=== PATIENT | male | born 1970 | race Caucasian/White ===

== ENCOUNTER 2021-03-25 09:49 | Emergency (ER) | payer BC ==
[2021-03-25 09:58] VITALS: BP 113/76; PULSE 83; TEMP 98; BMI 30.7
[2021-03-25] MEDS ORDERED: DIPHTH,PERTUSS(ACELL),TET 0.5 ML DISP.SYRIN IM ONE ×2 (10:48→10:51)
== END 2021-03-25 11:19 | disposition home or self-care (01) ==
LOC: JERFT 09:49
PROC: 3E0234Z Introduction of Serum, Toxoid and Vaccine into Muscle, Percutaneous Approach (ICD-10-PCS; principal; 2021-03-25)
DX: S61.206A Unspecified open wound of right little finger without damage to nail, initial encounter (principal); W26.8XXA Contact with other sharp object(s), not elsewhere classified, initial encounter
CPT/HCPCS: 90715; 99282-25

== ENCOUNTER 2021-12-17 00:01 | Emergency (ER) | payer BC ==
[2021-12-17 00:32] VITALS: BMI 30.7
[2021-12-17] MEDS ORDERED: LOPERAMIDE HCL 2 MG CAPSULE PO ONE (00:55)
[2021-12-17] MEDS ORDERED: LACTATED RINGERS SOLUTION 1000 ML INFUS.BAG IV ONE (00:55)
[2021-12-17] MEDS ORDERED: LOPERAMIDE HCL 2 MG CAPSULE ONE (00:58)
[2021-12-17 01:37] LABS: HEMATOCRIT 46.3 % (35.4-49); MCH 31.2 pg (25.7-33.7); MCHC 34.6 g/dl (32.0-35.9); MEAN CELL VOLUME 90.1 fl (80-96); MEAN PLT VOLUME 6.8 fl (7.5-11.1); PLATELET COUNT 423 10^3/uL (134-434); RBC 5.14 M/mm3 (4.00-5.60); RDW 14.1 % (11.9-15.9)
[2021-12-17] MEDS ORDERED: ONDANSETRON 4 MG TABLET PO ONE (01:37)
[2021-12-17] MEDS ORDERED: ONDANSETRON 4 MG/2 ML VIAL ONE (01:49)
[2021-12-17 02:06] LABS: BLOOD UREA NITROGEN 21.4 mg/dL (7-18); CALCIUM 10.3 mg/dL (8.5-10.1)
[2021-12-17 02:07] LABS: ALBUMIN 4.8 g/dl (3.4-5.0); MAGNESIUM 2.4 mg/dL (1.8-2.4)
[2021-12-17 02:10] LABS: CREATININE 1.2 mg/dL (0.55-1.3)
[2021-12-17 02:11] LABS: BILIRUBIN,TOTAL 0.5 mg/dL (0.2-1); TOT PROT 8.7 g/dl (6.4-8.2)
[2021-12-17 06:42] VITALS: BP 125/79; PULSE 81; TEMP 97.6
== END 2021-12-17 05:00 | disposition home or self-care (01) ==
LOC: JER 00:01
DX: R11.10 Vomiting, unspecified (principal); R19.7 Diarrhea, unspecified
CPT/HCPCS: 36415; 74177-TC; 80053; 83735; 85025; 93005; 93010; 99285-25

== ENCOUNTER 2023-08-05 07:44 | Emergency (ER) | payer BC ==
[2023-08-05 08:14] VITALS: TEMP 98.1; BMI 30.7
[2023-08-05] MEDS ORDERED: ALBUTEROL SO4 2.5/IPRATROPIUM 0.5 INH SOL 3 ML VIAL.NEB. NEB ONE ×4 (08:24→08:39)
[2023-08-05] MEDS ORDERED: methylPREDNISolone NA SUCC 125 MG/2 ML VIAL IVPUSH ONE (08:34)
[2023-08-05] MEDS ORDERED: methylPREDNISolone NA SUCC 125 MG/2 ML VIAL ONE (08:35)
[2023-08-05 09:45] LABS: BASO % 0.6 % (0-2.0); EOS % 8.7 % (0-4.5); HEMATOCRIT 41.1 % (35.4-49); HEMOGLOBIN 13.6 GM/dL (11.7-16.9); LYMPH % 17.7 % (8-40); MCH 29.6 pg (25.7-33.7); MCHC 33.2 g/dl (32.0-35.9); MEAN CELL VOLUME 89.1 fl (80-96); MEAN PLT VOLUME 7.2 fl (7.5-11.1); MONO % 8.9 % (3.8-10.2); NEUT % 64.1 % (42.8-82.8); PLATELET COUNT 342 10^3/uL (134-434); RBC 4.61 M/mm3 (4.00-5.60); RDW 13.6 % (11.9-15.9); WHITE BLOOD COUNT 9.9 K/mm3 (4.0-10.0)
[2023-08-05 09:58] LABS: POTASSIUM 4.2 mmol/L (3.5-5.1)
[2023-08-05 09:59] LABS: ALBUMIN 3.6 g/dl (3.4-5.0); BLOOD UREA NITROGEN 14.5 mg/dL (7-18); CALCIUM 8.8 mg/dL (8.5-10.1)
[2023-08-05 10:02] LABS: CREATININE 0.8 mg/dL (0.55-1.3)
[2023-08-05 10:04] LABS: BILIRUBIN,TOTAL 0.6 mg/dL (0.2-1)
[2023-08-05 10:16] VITALS: BP 138/84; PULSE 64; RESP 18
== END 2023-08-05 10:35 | disposition home or self-care (01) ==
LOC: JER 07:44
PROC: 3E033GC Introduction of Other Therapeutic Substance into Peripheral Vein, Percutaneous Approach (ICD-10-PCS; principal; 2023-08-05)
PROC: 3E0F7GC Introduction of Other Therapeutic Substance into Respiratory Tract, Via Natural or Artificial Opening (ICD-10-PCS; 2023-08-05)
PROC: 3E0F7GC Introduction of Other Therapeutic Substance into Respiratory Tract, Via Natural or Artificial Opening (ICD-10-PCS; 2023-08-05)
DX: R06.00 Dyspnea, unspecified (principal); R06.2 Wheezing; R07.9 Chest pain, unspecified; R05.9 Cough, unspecified; R09.81 Nasal congestion; R53.81 Other malaise; R06.82 Tachypnea, not elsewhere classified; Z20.822 Contact with and (suspected) exposure to COVID-19
CPT/HCPCS: 0241U-QW; 36415; 71045-TC-FY; 80053; 84484; 85025; 93005; 93010; 99285-25

== ENCOUNTER 2023-08-25 15:34 | Emergency (ER) | payer BC ==
[2023-08-25 15:53] VITALS: BP 118/87; PULSE 79; RESP 20; TEMP 99.1; BMI 30.7
[2023-08-25] MEDS ORDERED: predniSONE 20 MG TABLET (UD) PO ONE (16:44)
[2023-08-25] MEDS ORDERED: ALBUTEROL SO4 2.5/IPRATROPIUM 0.5 INH SOL 3 ML VIAL.NEB. NEB ONE (16:57)
[2023-08-25] MEDS ORDERED: predniSONE 20 MG TABLET (UD) ONE (16:58)
[2023-08-25] MEDS: ALBUTEROL SO4 2.5/IPRATROPIUM 0.5 INH SOL 3 ML VIAL.NEB. NEB SCH ×4 (17:02→18:45)
[2023-08-25] MEDS ORDERED: AZITHROMYCIN 250 MG TABLET PO ONE (17:55)
[2023-08-25] MEDS ORDERED: AZITHROMYCIN 500 MG TABLET ONE (18:52)
[2023-08-25] MEDS ORDERED: AMOX TR/POT CLAV 875MG/125MG TABLETS (FP) PO ONE (18:59)
[2023-08-25] MEDS ORDERED: AMOX TR/POT CLAV 875MG/125MG TABLETS (FP) ONE (19:03)
== END 2023-08-25 19:05 | disposition home or self-care (01) ==
LOC: JERFT 15:34
PROC: 3E0F7GC Introduction of Other Therapeutic Substance into Respiratory Tract, Via Natural or Artificial Opening (ICD-10-PCS; principal; 2023-08-25)
DX: J09.X1 Influenza due to identified novel influenza A virus with pneumonia (principal); R05.9 Cough, unspecified; R50.9 Fever, unspecified; M79.10 Myalgia, unspecified site; R07.0 Pain in throat; R06.02 Shortness of breath; Z20.822 Contact with and (suspected) exposure to COVID-19
CPT/HCPCS: 0241U-QW; 71046-TC-FY; 99284-25

== ENCOUNTER 2023-08-31 12:07 | Observation (INO) | payer BC ==
[2023-08-31] MEDS ORDERED: ACETAMINOPHEN 1000 MG/100 ML BAG IVPB ONE (14:13)
[2023-08-31] MEDS ORDERED: methylPREDNISolone NA SUCC 125 MG/2 ML VIAL IVPUSH ONE (14:13)
[2023-08-31] MEDS ORDERED: ALBUTEROL SO4 2.5/IPRATROPIUM 0.5 INH SOL 3 ML VIAL.NEB. NEB ONE ×3 (14:17→23:06)
[2023-08-31] MEDS: ALBUTEROL SO4 2.5/IPRATROPIUM 0.5 INH SOL 3 ML VIAL.NEB. NEB SCH ×5 (14:40→23:08)
[2023-08-31] MEDS ORDERED: ACETAMINOPHEN INJECTION 100 ML IVPB ONE (14:41)
[2023-08-31] MEDS ORDERED: methylPREDNISolone NA SUCC 125 MG/2 ML VIAL ONE (14:41)
[2023-08-31 14:47] LABS: VENOUS BASE EXCESS 2.2 mmol/L (-2-2); VENOUS O2 SATURATION 53.5 % (70-80); VENOUS PCO2 54.9 mmHg (38-52); VENOUS PH 7.346 (7.310-7.410)
[2023-08-31 14:48] LABS: BASO % 0.7 % (0-2.0); EOS % 0.8 % (0-4.5); HEMATOCRIT 46.9 % (35.4-49); HEMOGLOBIN 15.9 GM/dL (11.7-16.9); LYMPH % 32.5 % (8-40); MCH 30.3 pg (25.7-33.7); MCHC 33.9 g/dl (32.0-35.9); MEAN CELL VOLUME 89.4 fl (80-96); MEAN PLT VOLUME 6.6 fl (7.5-11.1); PLATELET COUNT 426 10^3/uL (134-434); RBC 5.24 M/mm3 (4.00-5.60); RDW 13.8 % (11.9-15.9); WHITE BLOOD COUNT 8.6 K/mm3 (4.0-10.0)
[2023-08-31 14:59] LABS: INR 0.93 (0.83-1.09); PROTHROMBIN TIME (PATIENT) 10.8 SEC (9.7-13.0)
[2023-08-31 15:02] LABS: ACTIVATED PTT 26.8 SECONDS (25.2-36.5)
[2023-08-31 15:12] LABS: POTASSIUM 4.1 mmol/L (3.5-5.1)
[2023-08-31 15:14] LABS: CALCIUM 9.4 mg/dL (8.5-10.1)
[2023-08-31 15:16] LABS: MAGNESIUM 2.5 mg/dL (1.8-2.4)
[2023-08-31 15:19] LABS: BILIRUBIN,TOTAL 0.5 mg/dL (0.2-1); TOT PROT 8.2 g/dl (6.4-8.2)
[2023-08-31 15:23] LABS: CREATININE 0.9 mg/dL (0.55-1.3)
[2023-08-31] MEDS ORDERED: MAGNESIUM 1GM/D5W - 1 GM/100 ML IVPB IVPB ONE (15:59)
[2023-08-31] MEDS ORDERED: ALBUTEROL SO4 0.083% IH SOL 2.5 MG/3 ML VIAL.NEB. NEB ONE (15:59)
[2023-08-31] MEDS ORDERED: MAGNESIUM SULFATE IN WATER 2 GM/50 ML IVPB IVPB ONE (16:04)
[2023-08-31] MEDS: ALBUTEROL SO4 0.083% IH SOL 2.5 MG/3 ML VIAL.NEB. NEB SCH ×2 (16:14→17:12)
[2023-08-31] MEDS ORDERED: ALBUTEROL SO4 0.083% IH SOL 2.5 MG/3 ML VIAL.NEB. NEB PRN (16:21)
[2023-08-31] MEDS ORDERED: ALBUTEROL SO4 2.5/IPRATROPIUM 0.5 INH SOL 3 ML VIAL.NEB. NEB SCH (16:30)
[2023-08-31] MEDS ORDERED: AMOX TR/POT CLAV 875MG/125MG TABLETS (FP) ONE (18:38)
[2023-08-31] MEDS: AMOX TR/POT CLAV 875MG/125MG TABLETS (FP) PO SCH (18:50)
[2023-08-31] MEDS ORDERED: methylPREDNISolone NA SUCC 40 MG/1 ML VIAL ONE (21:04)
[2023-08-31] MEDS ORDERED: MONTELUKAST NA 10 MG TABLET ONE (21:04)
[2023-08-31] MEDS: methylPREDNISolone NA SUCC 40 MG/1 ML VIAL IVPUSH SCH (21:10)
[2023-08-31] MEDS: MONTELUKAST NA 10 MG TABLET PO SCH (21:10)
[2023-08-31] MEDS: LACTOBACILLUS ACIDOPHILUS 1 TABLET PO SCH (21:33)
[2023-08-31] MEDS: BUDESONIDE/FORMETEROL FUMARATE 160/4.5 mcg INHALER IH SCH (21:33)
[2023-09-01] MEDS ORDERED: ALBUTEROL SO4 2.5/IPRATROPIUM 0.5 INH SOL 3 ML VIAL.NEB. NEB ONE ×2 (03:03→07:44)
[2023-09-01] MEDS ORDERED: methylPREDNISolone NA SUCC 40 MG/1 ML VIAL ONE (03:04)
[2023-09-01] MEDS: ALBUTEROL SO4 2.5/IPRATROPIUM 0.5 INH SOL 3 ML VIAL.NEB. NEB SCH ×5 (04:13→20:45)
[2023-09-01] MEDS: methylPREDNISolone NA SUCC 40 MG/1 ML VIAL IVPUSH SCH ×3 (05:00→21:27)
[2023-09-01 06:33] LABS: HEMATOCRIT 41.6 % (35.4-49); HEMOGLOBIN 14.7 GM/dL (11.7-16.9); MCH 31.6 pg (25.7-33.7); MCHC 35.3 g/dl (32.0-35.9); MEAN CELL VOLUME 89.6 fl (80-96); MEAN PLT VOLUME 6.6 fl (7.5-11.1); PLATELET COUNT 396 10^3/uL (134-434); RBC 4.64 M/mm3 (4.00-5.60); RDW 13.7 % (11.9-15.9); WHITE BLOOD COUNT 6.6 K/mm3 (4.0-10.0)
[2023-09-01 06:54] LABS: POTASSIUM 4.3 mmol/L (3.5-5.1)
[2023-09-01 06:55] LABS: CALCIUM 8.8 mg/dL (8.5-10.1); MAGNESIUM 2.5 mg/dL (1.8-2.4)
[2023-09-01 06:56] LABS: BLOOD UREA NITROGEN 16.7 mg/dL (7-18)
[2023-09-01 06:59] LABS: CREATININE 0.9 mg/dL (0.55-1.3)
[2023-09-01] MEDS: ACETAMINOPHEN 325 MG TABLET (FP) PO PRN (07:47)
[2023-09-01] MEDS: AMOX TR/POT CLAV 875MG/125MG TABLETS (FP) PO SCH ×2 (07:57→16:34)
[2023-09-01] MEDS: SODIUM CHLORIDE 1,000 ML IV SCH (09:58)
[2023-09-01] MEDS: BUDESONIDE/FORMETEROL FUMARATE 160/4.5 mcg INHALER IH SCH ×2 (09:58→21:33)
[2023-09-01] MEDS ORDERED: BENZOCAINE/MENTH/CETYLPYRD CL 1 EACH LOZENGE MM ONE (10:54)
[2023-09-01] MEDS: BENZOCAINE/MENTH/CETYLPYRD CL 1 EACH LOZENGE MM PRN ×2 (10:55→14:42)
[2023-09-01] MEDS: ENOXAPARIN NA (PORCINE) 40 MG/0.4 ML DISP.SYRIN SQ SCH (17:24)
[2023-09-01] MEDS: LACTOBACILLUS ACIDOPHILUS 1 TABLET PO SCH (21:27)
[2023-09-01] MEDS: MELATONIN 5 MG TABLETS PO PRN (21:28)
[2023-09-01] MEDS: MONTELUKAST NA 10 MG TABLET PO SCH (21:28)
[2023-09-02] MEDS: ALBUTEROL SO4 2.5/IPRATROPIUM 0.5 INH SOL 3 ML VIAL.NEB. NEB SCH ×7 (00:30→23:12)
[2023-09-02] MEDS: SODIUM CHLORIDE 1,000 ML IV SCH ×2 (05:14→10:19)
[2023-09-02] MEDS: methylPREDNISolone NA SUCC 40 MG/1 ML VIAL IVPUSH SCH ×3 (05:52→22:04)
[2023-09-02] MEDS: ACETAMINOPHEN 325 MG TABLET (FP) PO PRN ×2 (07:14→22:03)
[2023-09-02] MEDS: ENOXAPARIN NA (PORCINE) 40 MG/0.4 ML DISP.SYRIN SQ SCH (10:18)
[2023-09-02] MEDS: BENZOCAINE/MENTH/CETYLPYRD CL 1 EACH LOZENGE MM PRN (10:20)
[2023-09-02] MEDS: BUDESONIDE/FORMETEROL FUMARATE 160/4.5 mcg INHALER IH SCH ×2 (10:22→22:03)
[2023-09-02] MEDS: MONTELUKAST NA 10 MG TABLET PO SCH (22:04)
[2023-09-02] MEDS: LACTOBACILLUS ACIDOPHILUS 1 TABLET PO SCH (22:04)
[2023-09-02] MEDS: MELATONIN 5 MG TABLETS PO PRN (22:04)
[2023-09-02 23:45] VITALS: BMI 29.7
[2023-09-03] MEDS: ALBUTEROL SO4 2.5/IPRATROPIUM 0.5 INH SOL 3 ML VIAL.NEB. NEB SCH ×4 (04:46→15:28)
[2023-09-03] MEDS: methylPREDNISolone NA SUCC 40 MG/1 ML VIAL IVPUSH SCH ×2 (05:38→13:39)
[2023-09-03] MEDS: ACETAMINOPHEN 325 MG TABLET (FP) PO PRN ×2 (05:45→11:38)
[2023-09-03] MEDS: ENOXAPARIN NA (PORCINE) 40 MG/0.4 ML DISP.SYRIN SQ SCH (09:57)
[2023-09-03] MEDS: BUDESONIDE/FORMETEROL FUMARATE 160/4.5 mcg INHALER IH SCH (09:58)
[2023-09-03 12:13] VITALS: TEMP 98.7
[2023-09-03 15:58] VITALS: BP 140/97; PULSE 82; RESP 20
== END 2023-09-03 15:32 | disposition home or self-care (01) ==
LOC: JER 12:07 → JERBED 15:41 → UNDOADMOB 15:41 → INTOOBSV 15:41 → JERBED 16:21 → J7W 09-01 11:49
PROVIDERS: ADMIT Internal Medicine
PROC: 3E033NZ Introduction of Analgesics, Hypnotics, Sedatives into Peripheral Vein, Percutaneous Approach (ICD-10-PCS; principal; 2023-08-31)
PROC: 3E033GC Introduction of Other Therapeutic Substance into Peripheral Vein, Percutaneous Approach (ICD-10-PCS; 2023-08-31)
DX: J09.X2 Influenza due to identified novel influenza A virus with other respiratory manifestations (principal); J45.901 Unspecified asthma with (acute) exacerbation; Z71.6 Tobacco abuse counseling; R06.00 Dyspnea, unspecified; R06.89 Other abnormalities of breathing; F17.200 Nicotine dependence, unspecified, uncomplicated
CPT/HCPCS: 0241U-QW; 36415; 71046-TC-FY; 80048; 80053; 82803; 83735; 84484; 85025; 85027; 85610; 85730; 87045; 87046; 87324; 87449; 93005; 93010; 94640; 99285-25; G0378